=== PATIENT | female | born 1995 | race African-American/Black ===

== ENCOUNTER 2020-04-06 13:08 | Emergency (ER) | payer SELFPAY ==
[~2020-04-06] VITALS: Ht 162.6 cm; Wt 73.0 kg
[~2020-04-06 13:08] MED LIST: CYCL10TA2 PO; NAPR500T8 PO; ONDA4TAB10 SL
--- NOTE | 2020-04-06 14:49 | RAD ---
AP Internal and external rotation views with Y-View of the left shoulder were performed. Indication: Pain for 5 days after injury Comparison: None. No fracture, glenohumeral or AC joint subluxation, or significant degenerative changes are seen. The subacromial space is maintained. Impression: 1. Unremarkable exam of the left shoulder. Electronically signed by: Elmer Aponte MD (04/06/2020 2:47 PM) [id number]
[2020-04-06] MEDS ORDERED: IBUP-1007 PO (15:13)
[2020-04-06] MEDS ORDERED: METH4TAB2 PO (15:13)
[2020-04-06] MEDS ORDERED: CYCL5TAB PO (15:13)
--- NOTE | 2020-04-06 15:14 | PHYS DOC ---
Past Medical History Past Medical History: Hypertension, Other Additional Past Medical Histor: Tachycardia (CIERRA FREITAS SENIOR OFFICE ASSISTANT) Past Surgical History: Other Additional Past Surgical Histo: [place] teeth removal, R knee arthroscopy, DEVIATED SEPTUM REPAIR (CIERRA FREITAS APRN) Smoking Status: Current Every Day Smoker Alcohol Use: Occasionally Drug Use: None (CIERRA FREITAS APRN) General Adult EDM: Chief Complaint: SHOULDER INJURY HPI: HPI: Patient is a 24 year old female who presents with complaining of 1 week of left shoulder sharp shooting pain down the arm and tingling in the fingers. She states she is only in pain with movement of the shoulder and her range of motion is decreased. Patient states she has not been using anything for pain. Patient has a history of hypertension, tachycardia, wisdom teeth removal, smoker. (CIERRA FREITAS SENIOR OFFICE ASSISTANT) Review of Systems: Review of Systems: Constitutional: Denies fever or chills. [] Eyes: Denies change in visual acuity. [] HENT: Denies nasal congestion or sore throat. [] Respiratory: Denies cough or shortness of breath. [] Cardiovascular: Denies chest pain or edema. [] GI: Denies abdominal pain, nausea, vomiting, bloody stools or diarrhea. [] : Denies dysuria. [] Musculoskeletal: Denies back pain. + Left shoulder joint pain. [] Integument: Denies rash. [] Neurologic: Denies headache, focal weakness or sensory changes. + Tingling in fingers [] Endocrine: Denies polyuria or polydipsia. [] Lymphatic: Denies swollen glands. [] Psychiatric: Denies depression or anxiety. [] (CIERRA FREITAS SENIOR OFFICE ASSISTANT) Heart Score: Risk Factors: Risk Factors: DM, Current or recent (<one month) smoker, HTN, HLP, family history of CAD, obesity. Risk Scores: Score 0 - 3: 2.5% MACE over next 6 weeks - Discharge Home Score 4 - 6: 20.3% MACE over next 6 weeks - Admit for Clinical Observation Score 7 - 10: 72.7% MACE over next 6 weeks - Early Invasive Strategies (CIERRA FREITAS APRN) Allergies: Allergies: Allergies Coded Allergies Type Severity Reaction Last Updated Verified No Known Drug Allergies 03/11/13 No (BAFANGELIQUE RAMSEYA SENIOR OFFICE ASSISTANT) Physical Exam: PE: Constitutional: Well developed, well nourished, no acute distress, non-toxic appearance. [] HENT: Normocephalic, atraumatic, bilateral external ears normal, oropharynx moist, no oral exudates, nose normal. [] Eyes: PERRLA, EOMI, conjunctiva normal, no discharge. [] Neck: Normal range of motion, no tenderness, supple, no stridor. [] Cardiovascular:Heart rate regular rhythm, no murmur [] Lungs & Thorax: Bilateral breath sounds clear to auscultation [] Abdomen: Bowel sounds normal, soft, no tenderness, no masses, no pulsatile masses. [] Skin: Warm, dry, no erythema, no rash. [] Back: No tenderness, no CVA tenderness. [] Extremities: Left deltoid tenderness, no cyanosis, no clubbing, left shoulder ROM limited but intact, no edema. [] Neurologic: Alert and oriented X 3, normal motor function, normal sensory function, no focal deficits noted. [] Psychologic: Affect normal, judgement normal, mood normal. [] [facility] Current Patient Data: Vital Signs: Vital Signs Date Time Temp Pulse Resp B/P (MAP) Pulse Ox O2 Delivery O2 Flow Rate FiO2 04/06/20 13:56 97.3 73 134/87 (103) Room Air 97.3 ([facility] EKG: EKG: [] [facility] [place] Radiology/Procedures: Radiology/Procedures: [] Impression: [facility] [address] [place] [address] IMAGING REPORT Signed PATIENT: COMFORT BLACK LACCOUNT: [id number] : 1995 LOCATION: ER AGE: 24 SEX: F EXAM STATUS: PRE ER ORD. PHYSICIAN: MALLORIE FIGUEROA DO REASON: PAIN X 5 DAYS S/P INJURY PROCEDURE: SHOULDER 2+V LEFT AP Internal and external rotation views with Y-View of the left shoulder were performed. Indication: Pain for 5 days after injury Comparison: None. No fracture, glenohumeral or AC joint subluxation, or significant degenerative changes are seen. The subacromial space is maintained. Impression: 1. Unremarkable exam of the left shoulder. Electronically signed by: Elmer Aponte MD (04/06/2020 2:47 PM) [id number] DICTATED and SIGNED BY: ELMER APONTE MD DATE: 04/06/20 [id number] (CIERRA FREITAS APRN) Course & Med Decision Making: Course & Med Decision Making Pertinent Labs and Imaging studies reviewed. (See chart for details) See HPI. Range of motion the left shoulder is limited due to pain. There is no swelling, redness, heat, deformity to the left shoulder or the extremity. There is no joint laxity. There is no focal weakness. Strong lead refiner and strengths. Tenderness to the deltoid with palpation. Patient states that all she can think of is that at work she was picking up and throwing snowballs trying to hit a pole. She states she may have strained it. Patient is placed in an arm sling. [] (CIERRA FREITAS APRN) Dragon Disclaimer: Dragon Disclaimer: This electronic medical record was generated, in whole or in part, using a voice recognition dictation system. (CIERRA FREITAS APRN) Departure Departure Impression: Primary Impression: Cervical radicular pain Disposition: 01 DC HOME SELF CARE/HOMELESS Condition: STABLE Referrals: NO PCP (PCP) SKYLER ZURITA MD Patient Instructions: Cervical Radiculopathy Additional Instructions: Take medications as prescribed and with food. Remember to not drive or drink alcohol or work on the muscle relaxer as it would make you sleepy. Use a heating pad. Remember ending up with the eating pad over the lidocaine patch. Scripts Ibuprofen (IBUPROFEN) 600 Mg Tablet 600 MG PO PRN Q6HRS PRN for INFLAMMATION, #25 TAB Prov: CIERRA FREITAS APRN 04/06/20 Cyclobenzaprine Hcl (CYCLOBENZAPRINE HCL) 5 Mg Tablet 1 TAB PO TID, #21 TAB Prov: CIERRA FREITAS APRN 04/06/20 Methylprednisolone (MEDROL) 4 Mg Tab.ds.pk 1 PKG PO UD, #1 PKG Prov: CIERRA FREITAS APRN 04/06/20 Attending Signature Attending Signature I have reviewed the PA/JIG FITTER's note and plan of care. I was available for consultation as needed during the patient's visit in the emergency department. I agree with the clinical impression, plan, and disposition. (MALLORIE FIGUEROA DO) CIERRA FREITAS APRN Apr 06, 2020 15:13 MALLORIE FIGUEROA DO Apr 07, 2020 18:54
[2020-04-06 16:00] VITALS: BP 126/81
== END 2020-04-06 16:24 | disposition home or self-care (01) ==
LOC: ER 13:08
DX: M25.512 Pain in left shoulder (principal); M54.2 Cervicalgia; I10 Essential (primary) hypertension; F17.200 Nicotine dependence, unspecified, uncomplicated; Z98.890 Other specified postprocedural states
CPT/HCPCS: 73030; 99283; A4565

== ENCOUNTER 2020-08-12 02:40 | Emergency (ER) | payer SELFPAY ==
[~2020-08-12] VITALS: Ht 162.6 cm; Wt 71.0 kg
[~2020-08-12 02:40] MED LIST changes: +CYCL5TAB PO; +IBUP-1007 PO; +METH4TAB2 PO
[2020-08-12 03:05] VITALS: BP 151/80
[2020-08-12] MEDS ORDERED: CLIN300C9 PO (03:18)
--- NOTE | 2020-08-12 03:19 | ED.ADGEN ---
Past Medical History Past Medical History: Hypertension, Other Additional Past Medical Histor: Tachycardia Past Surgical History: Other Additional Past Surgical Histo: [place] teeth removal, R knee arthroscopy, DEVIATED SEPTUM REPAIR Smoking Status: Current Every Day Smoker Alcohol Use: Occasionally Drug Use: None General Adult EDM: Chief Complaint: SKIN RASH/ABSCESS HPI: HPI: Patient is a 25 year old female coming in for a "boil" in her right groin area. Patient states she has had similar lesions in the past that went away spontaneously. Patient states she shaves and thinks she aggravated the area by wearing tight pants when she was driving a long distance. No systemic complaints. Review of Systems: Review of Systems: All other systems within normal limits except for as noted in the HPI Current Medications: Current Medications Medications (Trade) Dose Ordered Sig/Alfredo Start Time Stop Time Status Last Admin Dose Admin Lidocaine/ Epinephrine (LIDOCAINE 2%-EPI 1:100,000 multi-dose) 20 ml 1X ONCE 08/12/20 03:30 08/12/20 03:31 08/12/20 03:01 20 ML Allergies: Allergies: Allergies Coded Allergies Type Severity Reaction Last Updated Verified No Known Drug Allergies 03/11/13 No Physical Exam: PE: Constitutional: Well developed, well nourished, no acute distress, non-toxic appearance. [] HENT: Normocephalic, atraumatic, bilateral external ears normal, nose normal. [] Eyes: PERRLA, conjunctiva normal, no discharge. [] Neck: No rigidity, supple, no stridor. [] Cardiovascular: Regular rate and rhythm, brisk cap refill [] Lungs & Thorax: Non labored symmetric respirations, no tachypnea or respiratory distress [] Abdomen: Soft, nondistended. Skin: Warm, dry, no erythema, no rash. 1.5 by 2 cm abscess increased between the majora and thigh [] Back: Unremarkable Extremities: No deformities, range of motion grossly intact, no lower extremity edema [] Neurologic: Alert and oriented X 3, no focal deficits noted. [] Psychologic: Affect normal, judgement normal, mood normal. [] EKG: EKG: [] Heart Score: C/O Chest Pain: No Risk Factors: Risk Factors: DM, Current or recent (<one month) smoker, HTN, HLP, family history of CAD, obesity. Risk Scores: Score 0 - 3: 2.5% MACE over next 6 weeks - Discharge Home Score 4 - 6: 20.3% MACE over next 6 weeks - Admit for Clinical Observation Score 7 - 10: 72.7% MACE over next 6 weeks - Early Invasive Strategies Radiology/Procedures: Radiology/Procedures: I&D procedure note: 2 cc of 2% lidocaine with epi injected in and around abscess. 11 blade scalpel used to make a 1 x 1 cm cruciate incision. Copious purulent drainage removed. Wound irrigated with saline wound dressed with nonadherent dressing. [] Course & Med Decision Making: Course & Med Decision Making Pertinent Labs and Imaging studies reviewed. (See chart for details) [] Dragon Disclaimer: Dragon Disclaimer: This electronic medical record was generated, in whole or in part, using a voice recognition dictation system. Departure Departure Impression: Primary Impression: Abscess of labia majora Disposition: HOME / SELF CARE / HOMELESS Condition: STABLE Referrals: NO PCP (PCP) Patient Instructions: Incision and Drainage, Care After Scripts Clindamycin Hcl (CLINDAMYCIN HCL) 300 Mg Capsule 1 CAP PO QID for antibiotic for 7 Days, #28 CAP Prov: OLENA CAMACHO MD 08/12/20 OLENA CAMACHO MD August 12, 2020 03:19
[2020-08-12] MEDS ORDERED: LIDOCAINE 2%/EPI 1:100,000 20 ML VIAL. INJ ONE (03:30)
== END 2020-08-12 03:30 | disposition home or self-care (01) ==
LOC: ER 02:40
DX: N76.4 Abscess of vulva (principal); I10 Essential (primary) hypertension; F17.200 Nicotine dependence, unspecified, uncomplicated
CPT/HCPCS: 56405; 99284; J3490

== ENCOUNTER 2020-09-12 19:45 | Emergency (ER) | payer SELFPAY ==
[~2020-09-12] VITALS: Ht 162.6 cm; Wt 68.1 kg
[~2020-09-12 19:45] MED LIST changes: +CLIN300C9 PO
[2020-09-12 21:52] VITALS: BP 131/90
--- NOTE | 2020-09-12 22:33 | PHYS DOC ---
Past Medical History Past Medical History: Hypertension, Other Additional Past Medical Histor: Tachycardia Past Surgical History: Other Additional Past Surgical Histo: [place] teeth removal, R knee arthroscopy, DEVIATED SEPTUM REPAIR Smoking Status: Current Every Day Smoker Alcohol Use: Occasionally Drug Use: None General Adult EDM: Chief Complaint: ELBOW PROBLEM HPI: HPI: Patient is a 25 year old female with history of hypertension who presents the ED today complaining of mild to moderate intermittent right elbow pain that has been going on since April. She states back in April 2020 she fell, dislocated as well as fractured her elbow. She states she was seen at [facility] and was referred to an orthopedic doctor who she saw. She states the orthopedic doctor wanted to do "scans" but she does not have insurance and was told there will not be done. Patient states she lives in pain. Patient is very upset, she states the nurse who triaged her requested her to follow-up with a clinic or an orthopedic doctor. At this point she is requesting to be discharged. Of note she is using her right upper extremity texting with no difficulties Review of Systems: Review of Systems: Constitutional: Denies fever or chills. [] Musculoskeletal: Reports right elbow pain Integument: Denies rash. [] Neurologic: Denies headache, focal weakness or sensory changes. [] Psychiatric: Denies depression or anxiety. [] Heart Score: C/O Chest Pain: N/A Risk Factors: Risk Factors: DM, Current or recent (<one month) smoker, HTN, HLP, family history of CAD, obesity. Risk Scores: Score 0 - 3: 2.5% MACE over next 6 weeks - Discharge Home Score 4 - 6: 20.3% MACE over next 6 weeks - Admit for Clinical Observation Score 7 - 10: 72.7% MACE over next 6 weeks - Early Invasive Strategies Allergies: Allergies: Allergies Coded Allergies Type Severity Reaction Last Updated Verified No Known Drug Allergies 03/11/13 No Physical Exam: PE: Constitutional: Well developed, well nourished, no acute distress, non-toxic appearance. [] Skin: Warm, dry, no erythema, no rash. [] Back: No tenderness, no CVA tenderness. [] Extremities: No tenderness, no cyanosis, no clubbing, ROM intact, no edema. [] Neurologic: Alert and oriented X 3, normal motor function, normal sensory function, no focal deficits noted. [] Psychologic: Affect normal, judgement normal, mood normal. [] EKG: EKG: [] Radiology/Procedures: Radiology/Procedures: [] Course & Med Decision Making: Course & Med Decision Making Pertinent Labs and Imaging studies reviewed. (See chart for details) This is a 25-year-old female patient presented to the ED today with right elbow pain that began in April after she fell and dislocated as well as fractured the elbow. She was seen at [facility] and followed up with an orthopedic doctor who wanted to do further scans but she had no medical insurance since they were not done. She states she now lives in pain. She is currently upset requesting to be discharged to home because she was informed by one of the nurses that she needs to followed up by an orthopedic doctor or one of the local clinics. Report was given to her. Provided orthopedic for follow- up. Rick Disclaimer: Rick Disclaimer: This electronic medical record was generated, in whole or in part, using a voice recognition dictation system. Departure Departure Impression: Primary Impression: Right elbow pain Disposition: 01 HOME / SELF CARE / HOMELESS Condition: STABLE Referrals: NO PCP (PCP) RAYMUNDO RODGERS MD follow up in one week Patient Instructions: Elbow Injury Additional Instructions: Follow up with the orthopedic doctor or one of the local clinics Take over the counter pain relievers eg. Naproxen or Tylenol PABLO RANGEL APRN Sep 12, 2020 22:32
== END 2020-09-12 22:32 | disposition home or self-care (01) ==
LOC: ER 19:45
DX: M25.521 Pain in right elbow (principal); I10 Essential (primary) hypertension; F17.200 Nicotine dependence, unspecified, uncomplicated
CPT/HCPCS: 99282